=== PATIENT | female | born 1950 | race Caucasian/White ===

== ENCOUNTER 2018-05-25 14:13 | Day surgery (SDC) | payer MEDICARE, OTHER ==
[2012-02-17 11:05] VITALS: BP 185/82
[2018-05-25] MEDS ORDERED: Xylocaine 1% Vial 30 ML PF IJ ONE (14:14)
[2018-05-25] MEDS ORDERED: Depo-Medrol 40 MG/ML IM ONE (14:14)
[2018-05-25] MEDS ORDERED: Marcaine 0.5% SDV 10 ML IJ ONE (14:14)
--- NOTE | 2018-05-25 17:02 | XRAY ---
Indication: Left shoulder injection. Intraoperative fluoroscopy was provided for 31 seconds. Single digital spot image submitted for interpretation demonstrates needle tip projecting over the left glenohumeral joint. Small amount of contrast injected for needle tip placement. Correlate with intraoperative findings/report.
--- NOTE | 2018-05-25 17:04 | XRAY ---
31 seconds of fluoroscopy was used in surgery for right shoulder injection.
--- NOTE | 2018-05-25 17:04 | XRAY ---
Indication: Right shoulder injection. Intraoperative fluoroscopy was provided for 31 seconds. Single digital spot image submitted for interpretation demonstrates needle tip projecting over the right glenohumeral joint. Small amount of contrast injected for needle tip placement. Correlate with intraoperative findings/report. Incidental partially visualized humeral intramedullary ru.
--- NOTE | 2018-05-25 17:14 | XRAY ---
31 seconds of fluoroscopy was used in surgery for left shoulder injection.
== END 2018-05-25 16:45 | disposition home or self-care (01) ==
LOC: SDC-PAIN 14:13
PROVIDERS: ATTEND Psychiatry & Neurology Pain Medicine
DX: M19.019 Primary osteoarthritis, unspecified shoulder (principal); E11.9 Type 2 diabetes mellitus without complications; I10 Essential (primary) hypertension; Z79.899 Other long term (current) drug therapy
CPT/HCPCS: 20611; 73030; 77002; J1030; J2001; Q9967

== ENCOUNTER 2019-08-09 07:52 | Day surgery (SDC) | payer MEDICARE, OTHER ==
[2012-02-17 11:05] VITALS: BP 185/82
[2019-08-09] MEDS ORDERED: Marcaine 0.5% SDV 10 ML IJ ONE (07:53)
[2019-08-09] MEDS ORDERED: DIPRIVAN 200 MG/20 ML IV ONE (09:55)
[2019-08-09] MEDS ORDERED: Ketamine HCl 50 MG/ML ONE (09:55)
--- NOTE | 2019-08-09 10:45 | XRAY ---
Indication: Left genicular nerve block. Intraoperative fluoroscopy was provided for 10 seconds. 2 digital spot images submitted for interpretation demonstrates anterior needle tips projecting medial/lateral supracondylar and medial tibial plateau. Correlate with intraoperative findings/report.
--- NOTE | 2019-08-09 10:45 | XRAY ---
Indication: Right genicular nerve block. Intraoperative fluoroscopy was provided for 13 seconds. 2 digital spot images submitted for interpretation demonstrate anterior needle tips projecting medial/lateral supracondylar and medial tibial plateau. Correlate with intraoperative findings/report.
--- NOTE | 2019-08-09 11:10 | XRAY ---
10 seconds fluoroscopy time in surgery for left genicular nerve block.
--- NOTE | 2019-08-09 11:10 | XRAY ---
13 seconds fluoroscopy time in surgery for right genicular nerve block.
[2019-08-09] MEDS ORDERED: Lactated Ringers 1,000 ML IV ONE (12:35)
== END 2019-08-09 09:53 | disposition home or self-care (01) ==
LOC: SDC-PAIN 07:52
PROVIDERS: ATTEND Psychiatry & Neurology Pain Medicine
DX: M17.0 Bilateral primary osteoarthritis of knee (principal); E11.9 Type 2 diabetes mellitus without complications; I10 Essential (primary) hypertension; Z79.899 Other long term (current) drug therapy
CPT/HCPCS: 64454; 73560; 77002; 82962; J2704